=== PATIENT | female | born 1970 | race African-American/Black ===

== ENCOUNTER → 2020-04-11 17:12 | Outpatient (CLI) | payer OTHER, SELFPAY ==
--- NOTE | ~2020-04-11 | MM_ITS ---
EXAMINATION: MM screening [facility] BI w rachel HISTORY: Screening mammogram TECHNIQUE: Craniocaudal and mediolateral oblique 3-D tomosynthesis images were obtained and synthetic 2-D images were generated. CAD analysis was submitted and interpreted. COMPARISON: 09/24/2018, 09/07/2017, 06/18/2016 BREAST PARENCHYMAL COMPOSITION: The breasts are extremely dense, which lowers the sensitivity of mamm ography. FINDINGS: There is no evidence of suspicious mass, calcification, or architectural distortion to sugg est malignancy in either breast. There has been no suspicious interval change. IMPRESSION: 1. No mammographic evidence of malignancy. 2. Recommend routine screening mammography in one year. BI-RADS Category 1: Negative Reviewed, dictated and finalized at location A. GAGE BROKER
== END ==
PROVIDERS: Visit Provider Obstetrics & Gynecology
DX: Z12.31 Encounter for screening mammogram for malignant neoplasm of breast (principal)
CPT/HCPCS: 77063; 77067

== ENCOUNTER → 2020-06-10 12:41 | Outpatient (CLI) | payer OTHER, SELFPAY ==
--- NOTE | ~2020-06-10 | US_ITS ---
US soft tissue abdomen 06/10/2020 13:14 Indication: Evaluate for abdominal hernia. Right upper quadrant pain. Procedure: High-resolution ultrasound of the right upper and lower abdomen Comparison: No prior studies for comparison. Findings: There is normal heterogeneous echotexture in the anterior abdominal wall of the right upper and lower abdomen. No abnormal masses or fluid collections. No evidence for hernia. Impression: 1: Normal ultrasound of the right upper and lower anterior abdominal wall soft tissues. No evidence f or hernia. Reviewed, dictated and finalized at location B. UCT INTRODUCTION MANAGER Impression: 1: Normal ultrasound of the right upper and lower anterior abdominal wall soft tissues. No evidence for hernia.
== END ==
PROVIDERS: Visit Provider Obstetrics & Gynecology
DX: R10.2 Pelvic and perineal pain (principal)
CPT/HCPCS: 76705

== ENCOUNTER → 2020-06-11 09:08 | Outpatient (CLI) | payer OTHER, SELFPAY ==
--- NOTE | ~2020-06-11 | US_ITS ---
US abdomen complete DATE: 06/11/2020 09:32 INDICATION: Gallbladder calculus TECHNIQUE: Real time imaging of the abdomen, doppler analysis COMPARISON: None FINDINGS: No hepatic or pancreatic space occupying mass lesion. Normal hepatopedal portal venous elis w. No gallstones or gallbladder wall thickening. Negative sonographic Singh's sign. Common bile duct measures 3.3 mm, normal. The right kidney measures 9.2 cm height, left kidney 9.2 cm length. There is a 6.5 mm hypercholic lesion at the upper pole of the right kidney, possibly an angiomyolipom a. The left kidney measures 9.2 cm length. There is a 1.4 cm hypercholic lesion in the upper pole of the left kidney, likely an angiomyolipoma. Smaller approximately 1 cm hyperechoic lesion of mid left kidney, also likely an angiomyolipoma. Normal splenic size. Normal caliber of the abdominal aorta. The inferior vena cava is unremarkable. IMPRESSION: No gallstones are identified. Hyperechoic renal lesions suggesting angiomyolipomas. Reviewed, dictated and finalized at Location A. Reviewed, dictated and finalized at location A. ER ETCHER
== END ==
PROVIDERS: Visit Provider Obstetrics & Gynecology
DX: K80.20 Calculus of gallbladder without cholecystitis without obstruction (principal)
CPT/HCPCS: 76700

== ENCOUNTER 2020-09-06 10:56 | Outpatient (RCR) | payer OTHER, SELFPAY ==
[2020-09-06 11:14] VITALS: BMI 24.3
[2020-09-06 11:16] VITALS: BMI 24.3
== END 2020-11-21 09:22 | disposition home or self-care (01) ==
LOC: ANHDMC 10:56
PROVIDERS: Visit Provider Obstetrics & Gynecology
DX: E78.00 Pure hypercholesterolemia, unspecified (principal); Z71.3 Dietary counseling and surveillance
CPT/HCPCS: 97802

== ENCOUNTER → 2021-07-03 16:20 | Outpatient (CLI) | payer OTHER, SELFPAY ==
--- NOTE | ~2021-07-03 | MM_ITS ---
EXAMINATION: MM screening [facility] BI w rachel HISTORY: Screening TECHNIQUE: Craniocaudal and mediolateral oblique 3-D tomosynthesis images were obtained and synthetic 2-D images were generated. CAD analysis was submitted and interpreted. COMPARISON: Comparison to multiple prior studies sequentially, with oldest reviewed study dated 11/2013. BREAST PARENCHYMAL COMPOSITION: The breasts are extremely dense, which lowers the sensitivity of mamm ography FINDINGS: There is no evidence of suspicious mass, calcification, or architectural distortion to sugg est malignancy in either breast. There has been no suspicious interval change. IMPRESSION: 1. No mammographic evidence of malignancy. 2. Recommend routine screening mammography in one year. BI-RADS Category 1: Negative Reviewed, dictated and finalized at location A. N MILL PRODUCTS INSPECTOR
== END ==
PROVIDERS: Visit Provider Obstetrics & Gynecology
DX: Z12.31 Encounter for screening mammogram for malignant neoplasm of breast (principal)
CPT/HCPCS: 77063; 77067

== ENCOUNTER 2022-07-31 09:41 | Outpatient (CLI) | payer OTHER, SELFPAY ==
--- NOTE | ~2022-07-31 | MM_ITS ---
EXAMINATION: MM screening [facility] BI w rachel HISTORY: Screening mammogram TECHNIQUE: Craniocaudal and mediolateral oblique 3-D tomosynthesis images were obtained and synthetic 2-D images were generated. CAD analysis was submitted and interpreted. COMPARISON: Serial mammograms dating back to 09/24/2018 BREAST PARENCHYMAL COMPOSITION: The breasts are extremely dense, which lowers the sensitivity of mamm ography. FINDINGS: There is no evidence of suspicious mass, calcification, or architectural distortion to sugg est malignancy in either breast. There has been no suspicious interval change. IMPRESSION: 1. No mammographic evidence of malignancy. 2. Recommend routine screening mammography in one year. BI-RADS Category 1: Negative Reviewed, dictated and finalized at location A.
== END 2022-07-31 09:42 | disposition home or self-care (01) ==
PROVIDERS: Visit Provider Obstetrics & Gynecology
DX: Z12.31 Encounter for screening mammogram for malignant neoplasm of breast (principal)
CPT/HCPCS: 77063; 77067

== ENCOUNTER 2024-02-18 14:27 | Outpatient (CLI) | payer OTHER, SELFPAY ==
--- NOTE | ~2024-02-18 | MM_ITS ---
EXAMINATION: MM screening [facility] BI w rachel HISTORY: Screening TECHNIQUE: Craniocaudal and mediolateral oblique 3-D tomosynthesis images were obtained and synthetic 2-D images were generated. CAD analysis was submitted and interpreted. COMPARISON: Comparison to multiple prior studies sequentially, with oldest reviewed study dated 06/20. BREAST PARENCHYMAL COMPOSITION: Dense: The breasts are extremely dense, which lowers the sensitivity of mammography. FINDINGS: There is no evidence of suspicious mass, calcification, or architectural distortion to sugg est malignancy in either breast. There has been no suspicious interval change. IMPRESSION: 1. No mammographic evidence of malignancy. 2. Recommend routine screening mammography in one year. BI-RADS Category 1: Negative Reviewed, dictated and finalized at location B.
== END 2024-02-18 14:28 | disposition home or self-care (01) ==
PROVIDERS: PCP Obstetrics & Gynecology; Visit Provider Obstetrics & Gynecology
DX: Z12.31 Encounter for screening mammogram for malignant neoplasm of breast (principal)
CPT/HCPCS: 77063; 77067